=== PATIENT | male | born 1950 | race Caucasian/White ===

== ENCOUNTER → 2016-07-20 | Outpatient (CLI) | payer OTHER ==
[2016-04-14 16:25] VITALS: BP 155/98
--- NOTE | 2016-07-20 18:01 | RAD ---
Chest, two views Indication: Acute bronchitis, cough. Comparison: 03/12/2013 Findings: Mild cardiac silhouette enlargement is unchanged. There is central and upper lobe predomin ant interstitial thickening, not significantly changed from prior. No dense infiltrate, pleural effu tatiana, or pneumothorax identified. The bony thorax is unremarkable. Impression: Chronic interstitial changes and cardiomegaly, similar to prior. No acute abnormality id entified. Reported By:
== END ==
LOC: RAD 12:24
PROVIDERS: ATTEND Nurse Practitioner Family
DX: J20.9 Acute bronchitis, unspecified (principal)
CPT/HCPCS: 71020

== ENCOUNTER → 2017-02-02 | Outpatient (CLI) | payer OTHER ==
[2016-04-14 16:25] VITALS: BP 155/98
--- NOTE | 2017-02-02 14:13 | RAD ---
Examination: Left hand, three views History: Arthritis, thumb swelling Comparison reference 04/14/2016 Findings: There is severe joint narrowing at the 1st carpometacarpal joint, with subchondral cystic d egeneration and hypertrophic osteophyte formation with fragmentation. No fracture is seen. Mild osteo arthritic changes involve several IP joints. No bone destruction, erosive arthropathy or soft tissue calcification. Impression: Osteoarthritis, especially at the base of the 1st metacarpal. This has progressed, radiog raphically, since 04/14/2016. Reported By:
== END ==
LOC: RAD 13:43
PROVIDERS: ATTEND Nurse Practitioner Family
DX: M25.542 Pain in joints of left hand (principal); M19.042 Primary osteoarthritis, left hand
CPT/HCPCS: 73130

== ENCOUNTER → 2017-02-07 | Outpatient (CLI) | payer OTHER ==
[2016-04-14 16:25] VITALS: BP 155/98
[2017-02-07 11:10] LABS: CREATININE 0.87 mg/dL (0.70-1.30)
--- NOTE | 2017-02-09 10:11 | CT ---
Indication: Pulmonary fibrosis . Exam: CT chest with contrast. Technique: Axial spiral images were obtained from the level above the clavicles through the adrenals after administration of 100 cc Omnipaque 350. Coronal and sagittal reconstructions were performed. [facility] control was utilized. Comparison: 03/12/2013. Findings: The thyroid gland is unremarkable. The aorta and pulmonary arteries are normal caliber with no filling defects and no aneurysm. There are small lymph nodes in the AP window measuring up to 2.4 cm which are unchanged. There are several pretracheal lymph nodes with the largest seen near the car ming measuring 2 cm which is unchanged. There are small hilar lymph nodes bilaterally with the largest on the right measuring 2 cm which is unchanged. There are mildly enlarged subcarinal lymph nodes on the right which are unchanged. The adrenals are normal. There are hypodense cystic masses scattered i n the liver scattered both lobes of the liver which are grossly unchanged. The gallbladder has been r emoved. There are mildly enlarged axillary lymph nodes bilaterally the largest on the measuring 2.3 c m and are unchanged. There is subpleural interstitial and ground-glass opacities scattered along the apices extending inferiorly into the upper lobes and both lung bases posteriorly which is more promin ent. No effusion is seen. There is no pulmonary nodule or mass. There is mild bronchiectasis along th e lung bases posteriorly which is unchanged. The bones are intact. Impression: Increasing interstitial ground-glass opacities along the upper lobes extending into the lung bases po steriorly which is more prominent could represent progressive pulmonary fibrosis or possible worsenin g pneumonitis from other etiology. Moderate mediastinal and hilar adenopathy which is unchanged. This may be reactive in etiology or pos sibly due to sarcoidosis vs other etiology. Probable hepatic cysts which are unchanged. Mild bronchiectasis along the lung bases. Reported By:
== END ==
LOC: RAD 10:38
PROVIDERS: ATTEND Nurse Practitioner Family
DX: J84.10 Pulmonary fibrosis, unspecified (principal)
CPT/HCPCS: 36415; 71260; 82565; 84520; A4222

== ENCOUNTER → 2017-06-13 | Outpatient (CLI) | payer OTHER ==
[2016-04-14 16:25] VITALS: BP 155/98
--- NOTE | 2017-06-13 15:46 | MRI ---
STUDY: MRI OF THE LUMBAR SPINE HISTORY: Low back pain. Fall 1.5 months ago. Comparison: MRI dated March 13, 2013. Technique: Multiplanar multi-sequence MRI of the lumbar spine was performed. Sagittal T1, sagittal T 2, and STIR images, axial T1, and axial T2 images were obtained. Findings: Sagittal images: Vertebral body heights and alignment are within normal limits. Marrow signal is age-appropriate. Ther e is degenerative endplate change identified, with minimal Modic type 1 change in the inferior endpla te of L5. There is degenerative disc disease at several levels, most notable at L5/S1. There appears to be posterior osteophytic ridging along the inferior endplate of L5. The conus medullaris is normal in appearance terminating at the level of L1/2. Axial images: T12 -- L1: Normal. L1 -- L2: Normal. L2 -- L3: There is a broad-based disc bulge, bilateral facet arthropathy and ligamentum flavum infold ing. This results in mild central canal stenosis. The right neural foramen is adequate. There is mild left neural foraminal stenosis. L3 -- L4: There is bilateral facet arthropathy and ligamentum flavum infolding. The central canal and neural foramina are adequate. L4 -- L5: There is a broad-based disc bulge, bilateral facet arthropathy and ligamentum flavum infold ing. This results in mild spinal stenosis. There is mild bilateral neural foraminal stenosis. L5 -- S1: There is a broad-based disc bulge, bilateral facet arthropathy and ligamentum flavum infold ing. The central canal is adequate. There is moderate left and severe right neural foraminal stenosis . IMPRESSION: 1. Multilevel lumbar spondylosis, most prominent at L5/S1. 2. Mild spinal stenosis at L2/3 and L4/5. 3. Neural foraminal stenosis as described, most severe at L5/S1 on the right. Reported By:
--- NOTE | 2017-06-14 08:57 | MRI ---
STUDY: MRI OF THE CERVICAL SPINE HISTORY: Cervicalgia. Patient states she fell about 1.5 months ago. Complains of neck pain and pain to upper extremities. Comparison: None. Technique: An MRI of the cervical spine including sagittal T1, T2, and T2 STIR, axial T1, and T2 FSE images was performed using standard departmental protocol. Findings: Sagittal images: There is image degradation due to patient motion. This limits detailed assessment of the cervical spine. Visualized portions of the posterior fossa are within normal limits. The craniocervical junction is u nremarkable. Vertebral body heights and alignment are within normal limits. Marrow signal is age-appropriate. There is no evidence for fracture or significant bone marrow edema. There is degenerative disc disease at C4/5, C5/6 and C6/7. There is no significant prevertebral soft tissue swelling. The surrounding paraspinal soft tissues a re unremarkable. There is no evidence of cord compression. No intrinsic signal abnormalities are identified in the sp inal cord itself. There appears to be artifact located at the posterior aspect of the spinal cord at T3/4. Axial images: Axial images technically inadequate due to patient motion. IMPRESSION: 1. Limited MRI examination of the cervical spine due to patient motion. Images are considered to be o f marginal diagnostic value. There is no gross evidence of significant spinal stenosis on the images provided. Reported By:
== END | disposition home or self-care (01) ==
LOC: RAD 13:36
PROVIDERS: ATTEND Nurse Practitioner Family
DX: M54.5 Low back pain (principal); M50.321 Other cervical disc degeneration at C4-C5 level; M47.897 Other spondylosis, lumbosacral region; M48.061 Spinal stenosis, lumbar region without neurogenic claudication
CPT/HCPCS: 72141; 72148

== ENCOUNTER 2018-05-22 10:58 | Observation (INO) ==
--- NOTE | 2018-05-22 12:07 | DR.H&P ---
H&P - History & Physical for Day of: H&P Date: 05/22/18 - Chief Complaint Chief Complaint: pain all over, muscle aches, tachycardia - History of Present Illness History of Present Illness: 68 WM DIRECT ADMIT FROM DR QUICK OFFICE WITH CO DIFFUSE JOINT PAIN AND MUSCLE ACHES. PT HAS ARTHRITIS AND CO HANDS SO STIFF AND CANNOT PYROMETER TEMPERATURE REGULATOR, DEHYDRATED AND TACHYCARDIC IN OFFICE WITH HR 130'S. PT HAS PMH OF RA, HTN, PULMONARY FIBROSIS, OA. PT HAS BEEN ON STATIN THERAPY, SUSPECTED RA FLARE AND RHABDO. PT ADMITTED FOR CE, IV HYDRATION, PAIN CONTROL, IV STEROIDS. - Past Medical History Past Medical History: Anxiety, Arthritis, COPD, Hypertension - Past Surgical History Surgical History: Cholecystectomy, Ortho Surgery - Family History Family Medical History: Diabetes Mellitus, Coronary Artery Disease, Heart Failure, Hypertension - Social History Does patient currently use any type of tobacco product: No Have you used tobacco products in the last 12 months: No Type of Tobacco Use: None Does any household member use tobacco: No Alcohol Use: None Drug Use: None - Medications Home Medications: MS Dutasteride [From Avodart] Allergy (Verified 04/14/16 16:21) - Review of Systems Constitutional: Weakness Eyes: No Symptoms Reported ENT: No Symptoms Reported Respiratory: SOB with Excertion Cardiovascular: Edema Gastrointestinal: No Symptoms Reported Genitourinary: No Symptoms Reported Musculoskeletal: Shoulder Pain, Arm Pain, Back Pain, Hand Pain, Leg Pain, Foot Pain, Neck Pain Skin: No Symptoms Reported Neurological: Weakness - Physical Exam Vital Signs: Temperature 97.5 F Pulse Rate [Left Brachial] 102 Respiratory Rate 20 Blood Pressure [Left Arm] 118/73 Blood Pressure [Right Arm] 138/58 Blood Pressure 155/98 O2 Sat by Pulse Oximetry 94 Oriented: Normal Eyes: Normal Ear: Normal Nose: Normal Throat: Normal Respiratory: RLL Diminished, LLL Diminished Cardiovascular: Tachycardia, Edema : Normal Auscultation: Bowel Sounds: Normal Palpation: Normal Tenderness: Normal Skin: Decreased Turgur, Red, Tender Musculoskeletal: Right, Left, Wrist, Hand, Knee, Back:Thoracic, Back:Lumbar, Swelling, Tender, Crepitance Mood Description: Anxious Affect: Anxious Speech Pattern: Clear, Appropriate - Assessment/Plan (1) Rheumatoid arthritis flare Status: Acute Plan: ADMIT HYDRATION, SED RATE, CRP. IV STEROIDS, PAIN CONTROL. ADMISSION LABS, EKG CE. CXR ON ADMISSION (2) Rhabdomyolysis Status: Acute (3) Dehydration Status: Acute (4) Leg edema Status: Acute (5) Anxiety Status: Chronic (6) Arthritis Status: Chronic (7) Hypertension Status: Chronic - Allergies Allergies/Adverse Reactions: Allergies Allergy/AdvReac Type Severity Reaction Status Date / Time Dutasteride [From Avodart] Allergy Verified 04/14/16 16:21
[2018-05-22 12:17] LABS: BASOPHILS # (AUTO) 0.1 X10^3/uL (0.0-0.1); BASOPHILS % (AUTO) 0.6 % (0.2-1.0); EOSINOPHILS # (AUTO) 0.9 x10^3/uL (0.0-0.2); EOSINOPHILS % (AUTO) 7.9 % (0.9-2.9); HEMATOCRIT 42.5 % (42.0-54.0); LYMPHOCYTES # (AUTO) 1.7 X10^3/uL (1.3-2.9); LYMPHOCYTES % (AUTO) 15.4 % (21.0-51.0); MEAN CORPUSCULAR HEMOGLOBIN 27.7 pg (27.0-34.0); MEAN CORPUSCULAR VOLUME 83.9 fL (80.0-100.0); MEAN PLATELET VOLUME 7.7 fL (7.4-11.0); MONOCYTES # (AUTO) 0.9 x10^3/uL (0.3-0.8); NEUTROPHILS # (AUTO) 7.5 x10^3/uL (2.2-4.8); NEUTROPHILS % (AUTO) 68.1 % (42.0-75.0); PLATELET COUNT 260 X10^3/uL (150.0-450.0); RED BLOOD COUNT 5.06 X10^6/uL (4.7-6.0)
[2018-05-22 12:33] LABS: BLOOD UREA NITROGEN 35 mg/dL (7-18); CALCIUM 9.7 mg/dL (8.5-10.1); CHLORIDE 100 mmol/L (98-107); CREATININE 1.04 mg/dL (0.70-1.30); SODIUM 137 mmol/L (136-145); TROPONIN I < 0.02 ng/mL (0-1.5); eGFR NON BLACK RACES > 60 (>60)
[2018-05-22 12:38] LABS: ALANINE AMINOTRANSFERASE 22 Units/L (12-78); ALBUMIN 2.7 g/dL (3.4-5.0); ALKALINE PHOSPHATASE 52 Units/L (46-116); ASPARTATE AMINO TRANSFERASE 22 Units/L (15-37); CKMB % 2.1 % (<4); COR CA(FOR HYPOALB) 10.7 mg/dL (8.5-10.1); CREATINE KINASE 48 Units/L (39-308); TOTAL PROTEIN 7.2 g/dL (6.4-8.2)
[2018-05-22] MEDS: NS 1000 ML 1,000 ML IV SCH (13:07)
[2018-05-22] MEDS: PROTONIX INJ 40 MG VIAL IVP SCH (13:07)
[2018-05-22] MEDS: SOLU-Medrol 40 MG VIAL IVP SCH ×3 (13:07→21:00)
[2018-05-22 13:09] VITALS: BMI 40.1
--- NOTE | 2018-05-22 14:32 | RAD ---
History: Dyspnea on exertion, weakness, pulmonary fibrosis Technique: PA and lateral views of the chest Comparison: 05/09/2018, 07/20/2016 Findings: There are diffuse reticulonodular and coarse interstitial opacities noted bilaterally, most severe throughout the left hemithorax. Findings appear unchanged previous examination dated 05/09/2018 however has worsened since the 2017 radiographs.. There is evidence of volume loss with low lung volumes. No focal airspace opacity is demonstrated. Impression: 1. No significant change from radiographs dated 05/09/2018. Findings have worsened since the radiographs from 07/20/2016. Diffuse bilateral interstitial opacities are again noted consistent with history of pulmonary fibrosis. Reported By:
[2018-05-22] MEDS: DILAUDID INJ IVP SCH ×3 (15:13→21:00)
[2018-05-22 18:09] LABS: ABG BASE EXCESS 5.1 mmol/L (-2.0-2.0)
[2018-05-22 18:10] LABS: ABG ALLEN TEST POS
[2018-05-22 20:15] LABS: BILIRUBIN,URINE NEGATIVE (NEGATIVE); BLOOD/HEMOGLOBIN,URINE NEGATIVE (NEGATIVE); GLUCOSE, URINE NEGATIVE (NEGATIVE); KETONES,URINE NEGATIVE (NEGATIVE); LEUKOCYTE ESTERASE ,URINE NEGATIVE (NEGATIVE); NITRITES,URINE NEGATIVE (NEGATIVE); PROTEIN,URINE 1+ (NEGATIVE); UROBILINOGEN,URINE NORMAL (NORMAL)
[2018-05-22 20:16] LABS: APPEARANCE,URINE CLEAR (CLEAR); COLOR,URINE YELLOW (YELLOW)
[2018-05-22 20:23] LABS: BACTERIA,URINE TRACE /HPF (NEGATIVE); MUCUS,URINE FEW /HPF (NEGATIVE); RBC,URINE 0-2 /HPF (NONE SEEN); SQUAMOUS EPITHELIAL CELL,UR RARE /HPF (NEGATIVE); YEAST,URINE RARE /HPF (NEGATIVE)
[2018-05-23] MEDS: DILAUDID INJ IVP SCH ×4 (02:12→20:52)
[2018-05-23] MEDS: NS 1000 ML 1,000 ML IV SCH ×2 (02:12→15:57)
[2018-05-23] MEDS: SOLU-Medrol 40 MG VIAL IVP SCH ×3 (05:49→22:03)
[2018-05-23 06:41] LABS: ALANINE AMINOTRANSFERASE 21 Units/L (12-78); ALBUMIN 2.5 g/dL (3.4-5.0); ALKALINE PHOSPHATASE 54 Units/L (46-116); ASPARTATE AMINO TRANSFERASE 19 Units/L (15-37); BLOOD UREA NITROGEN 34 mg/dL (7-18); CALCIUM 9.4 mg/dL (8.5-10.1); CARBON DIOXIDE 27.3 mmol/L (21-32); CHLORIDE 101 mmol/L (98-107); COR CA(FOR HYPOALB) 10.6 mg/dL (8.5-10.1); COR NA(FOR HYPERGLY) 142 mmol/L (136-145); CREATININE 1.05 mg/dL (0.70-1.30); SODIUM 139 mmol/L (136-145); TOTAL PROTEIN 7.2 g/dL (6.4-8.2); eGFR NON BLACK RACES > 60 (>60)
[2018-05-23 07:01] LABS: BASOPHILS % (AUTO) 0.1 % (0.2-1.0); HEMATOCRIT 40.9 % (42.0-54.0); HEMOGLOBIN 13.6 g/dL (13.5-18.0); LYMPHOCYTES # (AUTO) 0.9 X10^3/uL (1.3-2.9); LYMPHOCYTES % (AUTO) 9.4 % (21.0-51.0); MEAN CORPUSCULAR HEMOGLOBIN 27.9 pg (27.0-34.0); MEAN CORPUSCULAR HGB CONC 33.2 g/dL (33.0-35.0); MEAN CORPUSCULAR VOLUME 84.2 fL (80.0-100.0); MEAN PLATELET VOLUME 8.1 fL (7.4-11.0); MONOCYTES # (AUTO) 0.2 x10^3/uL (0.3-0.8); NEUTROPHILS # (AUTO) 8.3 x10^3/uL (2.2-4.8); NEUTROPHILS % (AUTO) 88.5 % (42.0-75.0); PLATELET COUNT 294 X10^3/uL (150.0-450.0); RED BLOOD COUNT 4.86 X10^6/uL (4.7-6.0); RED CELL DISTRIBUTION WIDTH 14.9 % (11.6-16.5); WHITE BLOOD COUNT 9.4 X10^3/uL (3.6-10.0)
[2018-05-23] MEDS: ZESTORETIC 20/25 MG PO SCH (09:23)
[2018-05-23] MEDS ORDERED: ATIVAN TAB 0.5 MG PO PRN (09:41)
[2018-05-23] MEDS ORDERED: TORADOL 15 MG VIAL IVP PRN (09:42)
[2018-05-23] MEDS: PROTONIX INJ 40 MG VIAL IVP SCH (10:15)
--- NOTE | 2018-05-23 11:00 | RAD ---
HISTORY: Bilateral knee pain Study: Left knee: Three views Comparison: None Findings: A left knee prosthesis is present. It appears to be partially imbedded in methacrylate. No acute bony or joint abnormalities are identified. Minimal ossification/calcification is noted along the medial femoral condyle suggesting prior trauma to the medial collateral ligament. IMPRESSION: 1. A left knee prosthesis is present. 2. No complicating features are noted. Reported By:
--- NOTE | 2018-05-23 11:01 | RAD ---
HISTORY: Right knee pain. No trauma Study: Right knee: Three views Comparison: None Findings: A right knee prosthesis is present. Its components appear to be partially imbedded in methacrylate. No acute bony abnormalities are identified. IMPRESSION: 1. A right knee prosthesis is present without complicating features. 2. No acute bony abnormalities are identified. Reported By:
[2018-05-23] MEDS ORDERED: NORCO 10/325 TAB PO PRN (13:47)
--- NOTE | 2018-05-23 13:53 | PCM.PROG ---
Progress Note - Progress Note for Day of Date of Exam: 05/23/18 - Subjective Subjective: 68 WM ADMITTED ON 05/22 WITH ACUTE PAIN ALL OVER, MULTIPLE MYALGIAS WITH RHEUMATOID FLARE. PTS SED RATE83 CRP 108.8 ON ADMISSION. SUSPECTED RHABDO, CPK NORMAL. PT PO2 55 ON ADMISSION ABG. PT HAS HX OF PULMONARY FIBROSIS. PT CO RIGHT ARM SWELLNG DUE TO IV INFILTRATION. NO REDNESS OR FIRMNESS AT SITE. WILL ELEVATED AND WARM MOIST COMPRESS. ADDED IV TORADOL FOR PAIN, CONTINUE HYDRATION. LOWER EXTREMITY EDMA HAS IMPROVED. PTHAS HX OF BILATERAL TKR'S WILL OBTAIN XRAYS TODAY. - Past Medical Family Social History Past Med/Fam/Surg Hx: No changes since H&P Allergies: Allergies dutasteride [From Avodart] Allergy (Verified 05/23/18 12:43) - Review of Systems ROS: No change since H&P - Vital Signs and I&O's Vital Signs: Temperature 97.6 F Pulse Rate [Left Brachial] 96 Respiratory Rate 20 Blood Pressure [Left Arm] 138/73 Blood Pressure [Right Arm] 138/58 Blood Pressure 155/98 O2 Sat by Pulse Oximetry 92 Intake and Output: Intake & Output 05/21/18 05/22/18 05/23/18 05/24/18 11:59 11:59 11:59 11:59 Intake Total 2125 / 2125 Output Total 700 / 700 Balance 1425 / 1425 - Physical Exam Oriented: Normal Eyes: Normal Ear: Normal Nose: Normal Throat: Normal Respiratory: Diminished Cardiovascular: Tachycardia, Edema : Normal Auscultation: Bowel Sounds: Normal Tenderness: Normal Skin: Decreased Turgur, Red, Tender Musculoskeletal: Right, Left, Wrist, Hand, Knee, Back:Thoracic, Back:Lumbar, Swelling, Tender, Crepitance Mood Description: Anxious Affect: Anxious Speech Pattern: Clear, Appropriate - Laboratory and Diagnostics Result Diagrams: 05/23/18 05:26 05/23/18 05:26 Labs: Laboratory WBC 9.4 X10^3/uL (3.6-10.0) 05/23/18 05:26 RBC 4.86 X10^6/uL (4.7-6.0) 05/23/18 05:26 Hgb 13.6 g/dL (13.5-18.0) 05/23/18 05:26 Hct 40.9 % (42.0-54.0) L 05/23/18 05:26 MCV 84.2 fL (80.0-100.0) 05/23/18 05:26 MCH 27.9 pg (27.0-34.0) 05/23/18 05:26 MCHC 33.2 g/dL (33.0-35.0) 05/23/18 05:26 RDW 14.9 % (11.6-16.5) 05/23/18 05:26 Plt Count 294 X10^3/uL (150.0-450.0) 05/23/18 05:26 MPV 8.1 fL (7.4-11.0) 05/23/18 05:26 Neut % (Auto) 88.5 % (42.0-75.0) H 05/23/18 05:26 Lymph % (Auto) 9.4 % (21.0-51.0) L 05/23/18 05:26 [place] % (Auto) 2.0 % (0.0-13.0) 05/23/18 05:26 Eos % (Auto) 0.0 % (0.9-2.9) L 05/23/18 05:26 Baso % (Auto) 0.1 % (0.2-1.0) L 05/23/18 05:26 Neut # (Auto) 8.3 x10^3/uL (2.2-4.8) H 05/23/18 05:26 Lymph # (Auto) 0.9 X10^3/uL (1.3-2.9) L 05/23/18 05:26 [place] # (Auto) 0.2 x10^3/uL (0.3-0.8) L 05/23/18 05:26 Eos # (Auto) 0.0 x10^3/uL (0.0-0.2) 05/23/18 05:26 Baso # (Auto) 0.0 X10^3/uL (0.0-0.1) 05/23/18 05:26 Absolute Nucleated RBC 0.0 /100WBC 05/23/18 05:26 ESR 83 MM/HOUR (0-15) H 05/22/18 12:07 Sample Site Rb 05/22/18 18:00 ABG pH 7.400 (7.35-7.45) 05/22/18 18:00 ABG pCO2 50.0 mmHg (35.0-45.0) H 05/22/18 18:00 ABG pO2 55.0 mmHg (80.0-100.0) L 05/22/18 18:00 ABG HCO3 31.0 mmol/L (22-26) H* 05/22/18 18:00 ABG O2 Saturation 88.0 % (90-100) L 05/22/18 18:00 ABG Base Excess 5.1 mmol/L (-2.0-2.0) H 05/22/18 18:00 Eric Test Pos 05/22/18 18:00 A-a Gradient 32.0 mmHg 05/22/18 18:00 FiO2 21.0 05/22/18 18:00 Blood Gas Comments Bev well cb 05/22/18 18:00 Sodium 139 mmol/L (136-145) 05/23/18 05:26 Corrected Sodium 142 mmol/L (136-145) 05/23/18 05:26 Potassium 4.3 mmol/L (3.5-5.1) 05/23/18 05:26 Chloride 101 mmol/L (98-107) 05/23/18 05:26 Carbon Dioxide 27.3 mmol/L (21-32) 05/23/18 05:26 BUN 34 mg/dL (7-18) H 05/23/18 05:26 Creatinine 1.05 mg/dL (0.70-1.30) 05/23/18 05:26 Est GFR (MDRD) Af Amer > 60 (>60) 05/23/18 05:26 Est GFR (MDRD) Non-Af > 60 (>60) 05/23/18 05:26 Glucose 232 mg/dL (65-99) H 05/23/18 05:26 Calcium 9.4 mg/dL (8.5-10.1) 05/23/18 05:26 Corrected Calcium 10.6 mg/dL (8.5-10.1) H 05/23/18 05:26 Total Bilirubin 0.20 mg/dL (0.2-1.0) 05/23/18 05:26 AST 19 Units/L (15-37) 05/23/18 05:26 ALT 21 Units/L (12-78) 05/23/18 05:26 Alkaline Phosphatase 54 Units/L (46-116) 05/23/18 05:26 Creatine Kinase 48 Units/L (39-308) 05/22/18 12:07 CK-MB (CK-2) 1.0 ng/mL (0-4.0) 05/22/18 12:07 CK/CKMB % Calc 2.1 % (<4) 05/22/18 12:07 Troponin I < 0.02 ng/mL (0-1.5) 05/22/18 12:07 C-Reactive Protein 98.60 mg/L (0-3.0) H 05/23/18 05:26 Total Protein 7.2 g/dL (6.4-8.2) 05/23/18 05:26 Albumin 2.5 g/dL (3.4-5.0) L 05/23/18 05:26 Globulin 4.7 g/dL (2.5-4.5) H 05/23/18 05:26 Albumin/Globulin Ratio 0.5 Ratio (1.1-2.1) L 05/23/18 05:26 Specimen Type Clean catch urine 05/22/18 20:05 Urine Color Yellow (YELLOW) 05/22/18 20:05 Urine Appearance Clear (CLEAR) 05/22/18 20:05 Urine pH 5.0 (5.0 - 8.0) 05/22/18 20:05 Ur Specific Fleming 1.020 (1.000-1.030) 05/22/18 20:05 Urine Protein 1+ (NEGATIVE) 05/22/18 20:05 Urine Glucose (UA) Negative (NEGATIVE) 05/22/18 20:05 Urine Ketones Negative (NEGATIVE) 05/22/18 20:05 Urine Occult Blood Negative (NEGATIVE) 05/22/18 20:05 Urine Nitrite Negative (NEGATIVE) 05/22/18 20:05 Urine Bilirubin Negative (NEGATIVE) 05/22/18 20:05 Urine Urobilinogen Normal (NORMAL) 05/22/18 20:05 Ur Leukocyte Esterase Negative (NEGATIVE) 05/22/18 20:05 Urine RBC 0-2 /HPF (NONE SEEN) 05/22/18 20:05 Urine WBC 0-2 /HPF (NONE SEEN) 05/22/18 20:05 Ur Squamous Epith Cells Rare /HPF (NEGATIVE) 05/22/18 20:05 Urine Bacteria Trace /HPF (NEGATIVE) 05/22/18 20:05 Urine Mucus Few /HPF (NEGATIVE) 05/22/18 20:05 Urine Yeast Rare /HPF (NEGATIVE) 05/22/18 20:05 Ur Culture Indicated? No/not indicated 05/22/18 20:05 - Plan (1) Rheumatoid arthritis flare Status: Acute Plan: YDRATION, SED RATE, CRP. IV STEROIDS, PAIN CONTROL. AM LABS, EKG CE. CXR ON ADMISSION (2) Rhabdomyolysis Status: Acute (3) Dehydration Status: Acute (4) Leg edema Status: Acute (5) Anxiety Status: Chronic (6) Arthritis Status: Chronic (7) Hypertension Status: Chronic
[2018-05-23 14:34] LABS: RHEUMATOID FACTOR POSITIVE (NEGATIVE)
[2018-05-23] MEDS: MOBIC TAB 15 MG PO SCH (15:54)
[2018-05-23] MEDS ORDERED: AMBIEN PO SCH (21:00)
[2018-05-24] MEDS: DILAUDID INJ IVP SCH ×2 (03:01→08:29)
[2018-05-24] MEDS: SOLU-Medrol 40 MG VIAL IVP SCH (05:20)
[2018-05-24] MEDS: NS 1000 ML 1,000 ML IV SCH (06:09)
[2018-05-24 06:52] LABS: BASOPHILS % (AUTO) 0.2 % (0.2-1.0); HEMATOCRIT 40.8 % (42.0-54.0); HEMOGLOBIN 13.5 g/dL (13.5-18.0); LYMPHOCYTES # (AUTO) 1.4 X10^3/uL (1.3-2.9); LYMPHOCYTES % (AUTO) 8.8 % (21.0-51.0); MEAN CORPUSCULAR HEMOGLOBIN 27.8 pg (27.0-34.0); MEAN CORPUSCULAR VOLUME 84.2 fL (80.0-100.0); MONOCYTES # (AUTO) 0.8 x10^3/uL (0.3-0.8); NEUTROPHILS # (AUTO) 13.4 x10^3/uL (2.2-4.8); PLATELET COUNT 318 X10^3/uL (150.0-450.0); RED BLOOD COUNT 4.85 X10^6/uL (4.7-6.0); WHITE BLOOD COUNT 15.6 X10^3/uL (3.6-10.0)
[2018-05-24 06:57] LABS: ALANINE AMINOTRANSFERASE 29 Units/L (12-78); ALBUMIN 2.7 g/dL (3.4-5.0); ALKALINE PHOSPHATASE 58 Units/L (46-116); ASPARTATE AMINO TRANSFERASE 23 Units/L (15-37); BLOOD UREA NITROGEN 29 mg/dL (7-18); CALCIUM 9.6 mg/dL (8.5-10.1); CARBON DIOXIDE 28.5 mmol/L (21-32); CHLORIDE 101 mmol/L (98-107); CHOL/HDL RATIO 3.4 (0.0-5.0); CHOLESTEROL 164 mg/dL (0-200); COR CA(FOR HYPOALB) 10.6 mg/dL (8.5-10.1); COR NA(FOR HYPERGLY) 140 mmol/L (136-145); HDL CHOLESTEROL 48 mg/dL (40-60); SODIUM 138 mmol/L (136-145); TOTAL PROTEIN 7.4 g/dL (6.4-8.2); TRIGLYCERIDES 50 mg/dL (0-150); eGFR NON BLACK RACES > 60 (>60)
[2018-05-24] MEDS: ZESTORETIC 20/25 MG PO SCH (08:28)
[2018-05-24] MEDS: MOBIC TAB 15 MG PO SCH (08:28)
[2018-05-24] MEDS: PROTONIX INJ 40 MG VIAL IVP SCH (08:29)
[2018-05-24 08:42] LABS: HEMOGLOBIN A1C 6.6 %
[2018-05-24 11:01] VITALS: BP 175/91
[2018-05-26 08:37] LABS: ANTI-NUCLEAR ANTIBODY TEST Detected (None Detected)
[2018-05-31 10:55] LABS: ANA PATTERN SPECKLED
== END 2018-05-24 13:30 | disposition home or self-care (01) ==
LOC: MED/SURG
PROVIDERS: ADMIT Internal Medicine; ATTEND Internal Medicine
DX: F41.8 Other specified anxiety disorders; I10 Essential (primary) hypertension; M13.89 Other specified arthritis, multiple sites; R00.0 Tachycardia, unspecified; R60.0 Localized edema; M62.82 Rhabdomyolysis; R70.0 Elevated erythrocyte sedimentation rate; E86.0 Dehydration; D72.828 Other elevated white blood cell count; R79.82 Elevated C-reactive protein (CRP); R06.02 Shortness of breath; Z96.653 Presence of artificial knee joint, bilateral; M06.80 Other specified rheumatoid arthritis, unspecified site; Z86.79 Personal history of other diseases of the circulatory system
CPT/HCPCS: 36415; 36600; 71020; 71046; 73564; 80053; 80061; 81001; 82550; 82553; 82803; 83036; 84484; 85025; 85652; 86038; 86039; 86140; 86308; 86430; 87040; 93005; 94760; 96367; 96374; 97161; 97166; A4216; A4222; C9113; G0378; J1170; J2920; J7030